=== PATIENT | female | born 1985 | race Caucasian/White ===

== ENCOUNTER 2017-12-26 18:30 | Emergency (ER) | payer OTHER ==
[~2017-12-26] VITALS: Ht 175.3 cm; Wt 77.1 kg
[2017-12-26] MEDS ORDERED: ROBAXIN 750 MG750 M1 PO (19:05)
[2017-12-26] MEDS ORDERED: PREDNISONE 5 MG5 MG PO (19:05)
[2017-12-26] MEDS ORDERED: TRAMADOL 50 MG50 MG PO (19:05)
[2017-12-26 19:19] VITALS: BP 122/70
== END 2017-12-26 19:19 | disposition home or self-care (01) ==
LOC: M.ERS 18:30
DX: M43.6 Torticollis (principal); F17.210 Nicotine dependence, cigarettes, uncomplicated

== ENCOUNTER 2021-02-01 09:02 | Emergency (ER) | payer OTHER ==
[~2021-02-01] VITALS: Ht 172.7 cm; Wt 79.4 kg
[~2021-02-01 09:02] MED LIST: PREDNISONE 5 MG5 MG PO; ROBAXIN 750 MG750 M1 PO; TRAMADOL 50 MG50 MG PO
[2021-02-01] MEDS ORDERED: HYDROCODON-ACE1 EAC7 PO (09:36)
[2021-02-01] MEDS ORDERED: AMOXICILLIN 50500 MG PO (09:36)
[2021-02-01 09:52] VITALS: BP 143/96
== END 2021-02-01 09:52 | disposition home or self-care (01) ==
LOC: M.ERS 09:02
DX: K02.9 Dental caries, unspecified (principal)